=== PATIENT | female | born 1965 | race Caucasian/White ===

== ENCOUNTER → 2016-03-17 | Outpatient (CLI) | payer OTHER ==
--- NOTE | 2016-03-17 09:34 | DX ---
Chest, Two Views at 0906 hours History: I 4 9.1, I 4 9.3, aortic aneurysm atrial premature depolarization, ventricular premature dep olarization. Comparison: November 2013 Findings: Cardiac silhouette is within normal range. No pneumonia, congestive heart failure, pleural effusion, or pneumothorax. Impression: No acute pulmonary disease.
== END ==
LOC: FIMAGING 09:10
PROVIDERS: ATTEND Internal Medicine Cardiovascular Disease
DX: I49.1 Atrial premature depolarization (principal); I49.3 Ventricular premature depolarization

== ENCOUNTER → 2017-01-14 | Outpatient (CLI) | payer OTHER | LOC: FIMAGING 13:01 | PROVIDERS: ATTEND Family Medicine | DX: M79.642 Pain in left hand (principal) ==

== ENCOUNTER → 2017-04-24 | Outpatient (CLI) | payer OTHER | LOC: FIMAGING 15:47 | PROVIDERS: ATTEND Physician Assistant | DX: Z12.31 Encounter for screening mammogram for malignant neoplasm of breast (principal) ==

== ENCOUNTER → 2018-04-27 | Outpatient (CLI) | payer OTHER | LOC: FIMAGING 11:50 | PROVIDERS: ATTEND Physician Assistant | DX: Z12.31 Encounter for screening mammogram for malignant neoplasm of breast (principal) ==